=== PATIENT | female | born 1960 | race Caucasian/White ===

== ENCOUNTER 2021-06-10 07:44 | Emergency (ER) | payer MEDICARE, BC, SELFPAY ==
[2021-06-10 07:52] VITALS: BP 128/80; PULSE 98; RESP 17; TEMP 36.7; O2SAT 98; BMI 27.8
--- NOTE | 2021-06-10 08:08 | ED.GENADULT ---
HPI - General Adult General Chief complaint: Back Pain/Injury <ALICIA Cox Last Filed: 06/10/21 09:17> Stated complaint: back pain lifting <ALICIA Cox - Last Filed: 06/10/21 09:17> Time Seen by Provider: 06/10/21 08:08 <ALICIA Cox Last Filed: 06/10/21 09:17> Source: patient <ALICIA Cox Last Filed: 06/10/21 09:17> Mode of arrival: ambulatory <ALICIA Cox Last Filed: 06/10/21 09:17> Limitations: no limitations <ALICIA Cox Last Filed: 06/10/21 09:17> History of Present Illness HPI narrative: Patient is a 60 year old female presenting to the emergency department today with back pain. Patient states that she lifted a heavy object and is now having back pain. Patient states that she has a history of back pain similar to this. Patient denies any dizziness, lightheadedness, abdominal pain, nausea, vomiting, fever, chills, blurry vision, double vision, loss of vision, chest pain, difficulty breathing, shortness of breath, night sweats, pain with urination, increased urinary frequency, increased urinary urgency, blood in her urine or stool, syncope or a near syncopal episode, recent trauma or falls, bowel incontinence, bladder incontinence, bowel retention, bladder retention, or any other complaints at this time. <ALICIA Cox - Last Filed: 06/10/21 09:17> Onset (ago): hour(s) <ALICIA Cox Last Filed: 06/10/21 09:17> Location: back <ALICIA Cox Last Filed: 06/10/21 09:17> Radiation: non-radiation <ALICIA Cox Last Filed: 06/10/21 09:17> Severity: mild <ALICIA Cox Last Filed: 06/10/21 09:17> Severity scale (1-10): 3 <ALICIA Cox Last Filed: 06/10/21 09:17> Quality: dull <ALICIA Cox Last Filed: 06/10/21 09:17> Pain Consistency: constant <ALICIA Cox - Last Filed: 06/10/21 09:17> Relieving factors: none <ALICIA Cox - Last Filed: 06/10/21 09:17> Exacerbating factors: movement <ALICIA Cox - Last Filed: 06/10/21 09:17> Associated symptoms: denies other symptoms <ALICIA Cox - Last Filed: 06/10/21 09:17> Treatments prior to arrival: none <ALICIA Cox - Last Filed: 06/10/21 09:17> Related Data Home medications: Previous Rx's Medication Instructions Recorded cyclobenzaprine 10 mg tablet 10 mg PO TID PRN 7 Days #21 tab 06/10/21 <ALICIA Cox Last Filed: 06/10/21 09:17> Allergies/adverse reactions: Allergies Allergy/AdvReac Type Severity Reaction Status Date / Time No Known Allergies* Allergy Uncoded 11/11/19 14:48 <ALICIA Cox Last Filed: 06/10/21 09:17> Review of Systems Constitutional: Constitutional: Reports no additional constitutional complaints, Denies chills, Denies fever(s) and Denies night sweats <ALICIA Cox Last Filed: 06/10/21 09:17> Eyes: Eyes: Reports no additional eye complaints, Denies blurry vision, Denies change in vision, Denies diplopia, Denies eye discharge, Denies loss of vision and Denies eye pain <ALICIA Cox - Last Filed: 06/10/21 09:17> ENT: Denies dizziness <ALICIA Cox - Last Filed: 06/10/21 09:17> Cardiovascular: Cardiovascular: Reports no additional cardiovascular complaints, Denies chest pain, Denies lightheadedness, Denies Loss of Consciousness and Denies dyspnea <ALICIA Cox - Last Filed: 06/10/21 09:17> Respiratory: Respiratory: Reports no additional respiratory complaints and Denies dyspnea <ALICIA Cox - Last Filed: 06/10/21 09:17> Gastrointestinal: Gastrointestinal: Reports no additional gastrointestinal complaints, Denies abdominal pain, Denies melena, Denies hematochezia, Denies change in bowel habits and Denies change in stool character <ALICIA Cox - Last Filed: 06/10/21 09:17> Genitourinary: Genitourinary: Denies hematuria, Denies urinary frequency, Denies dysuria, Denies urinary incontinence, Denies urinary hesitancy and Denies urinary urgency <ALICIA Cox - Last Filed: 06/10/21 09:17> Musculoskeletal: Musculoskeletal: Reports no additional musculoskeletal complaints, Reports back pain, Denies numbness and Denies tingling <ALICIA Cox - Last Filed: 06/10/21 09:17> Neurologic: Denies dizziness, Denies loss of vision, Denies numbness and Denies tingling <ALICIA Cox - Last Filed: 06/10/21 09:17> Psychiatric: Psychiatric: Reports no additional psychiatric complaints <ALICIA Cox - Last Filed: 06/10/21 09:17> Endocrine: Endocrine: Reports no additional endocrine complaints <ALICIA Cox - Last Filed: 06/10/21 09:17> Hematologic/Lymphatic: Hematologic/Lymphatic: Reports no additional hematologic/lymphatic complaints <ALICIA Cox - Last Filed: 06/10/21 09:17> Allergic/Immunologic: Allergic/Immunologic: Reports no additional allergic/immunologic complaints <ALICIA Cox - Last Filed: 06/10/21 09:17> PMFSH Past Medical History Attestation statement: The following information was validated with the patient. <ALICIA Cox - Last Filed: 06/10/21 09:17> Source: old records reviewed <ALICIA Cox - Last Filed: 06/10/21 09:17> Medical History: Medical History Diabetic acetonemia HTN (hypertension) <ALICIA Cox - Last Filed: 06/10/21 09:17> Surgical History: Surgical History Hx of parathyroidectomy <ALICIA Cox Last Filed: 06/10/21 09:17> Social History Social History: Social History Advance Directives: No Advance Directives Information Provided: No <ALICIA Cox - Last Filed: 06/10/21 09:17> Physical Exam ED Vital Signs: Vital Signs - 24 hr 06/10/21 07:52 06/10/21 08:46 Temperature 98.1 F 97.9 F Pulse Rate 98 97 Respiratory Rate 17 20 Blood Pressure 128/80 140/89 H Pulse Oximetry 98 99 BMI result Body Mass Index 27.8 <ALICIA Cox - Last Filed: 06/10/21 09:17> Const General: cooperative, no acute distress, alert and awake <ALICIA Cox - Last Filed: 06/10/21 09:17> Nutritional Appearance: well nourished <ALICIA Cox Last Filed: 06/10/21 09:17> Orientation/consciousness: patient oriented x3 <ALICIA Cox - Last Filed: 06/10/21 09:17> Limitations: no limitations <ALICIA Cox - Last Filed: 06/10/21 09:17> HENMT Head: Yes normal to inspection and Yes atraumatic <ALICIA Cox - Last Filed: 06/10/21 09:17> Ears: hearing grossly normal bilaterally and external ears normal <ALICIA Cox Last Filed: 06/10/21 09:17> General nose exam: Normal external nose present, no nasal discharge noted and no epistaxis <ALICIA Cox Last Filed: 06/10/21 09:17> Face and sinus: Yes normal facial exam, No abrasion and No laceration <ALICIA Cox - Last Filed: 06/10/21 09:17> Mouth: Normal oral and palatal mucosa present, no drooling and no muffled voice <ALICIA Cox Last Filed: 06/10/21 09:17> Eyes General: appearance normal, both eyes and all related structures <ALICIA Cox - Last Filed: 06/10/21 09:17> Periorbital: periorbital findings normal <ALICIA Cox Last Filed: 06/10/21 09:17> Eyelids: Yes eyelids normal <ALICIA Cox Last Filed: 06/10/21 09:17> Conjunctivae: conjunctivae normal <Tracie Avila HI - Last Filed: 06/10/21 09:17> Pupils: Equal, round and reactive pupils present <Tracie Avila HI - Last Filed: 06/10/21 09:17> EOM: EOMs intact bilaterally <Tracie Avila HI - Last Filed: 06/10/21 09:17> Neck Neck: Yes normal visual inspection, Yes full ROM and Yes no lymphadenopathy <Tracie Avila HI - Last Filed: 06/10/21 09:17> Chest Chest palpation & inspection: normal inspection of the chest <Tracie Delacruzmariaa HI - Last Filed: 06/10/21 09:17> Resp Effort & Inspection: normal respiratory effort and able to speak in complete sentences <Tracie Avila HI - Last Filed: 06/10/21 09:17> Auscultation: clear to auscultation bilaterally <Tracie Delacruzmariaa HI - Last Filed: 06/10/21 09:17> Cardio Rate: regular rate <Tracie Avila HI - Last Filed: 06/10/21 09:17> Rhythm: regular rhythm <Tracie Delacruzmariaa HI - Last Filed: 06/10/21 09:17> GI Inspection: Yes normal to inspection <Tracie Avila HI - Last Filed: 06/10/21 09:17> General: Yes no CVA tenderness <Tracie Delacruzmariaa HI - Last Filed: 06/10/21 09:17> Back/Spine/Pelvis Back: no CVA tenderness <Tracie Delacruzmariaa HI - Last Filed: 06/10/21 09:17> Cervical Spine: normal cervical lordosis and cervical ROM normal <Tracie Delacruzmariaa HI - Last Filed: 06/10/21 09:17> Thoracic/Lumbar Spine: thoracic and lumbar spine normal to inspection and thoraco-lumbar ROM normal <Tracie Delacruzmariaa HI - Last Filed: 06/10/21 09:17> Pelvis: no pain with anterior-posterior compression <Traciesharath Delacruzmariaa HI - Last Filed: 06/10/21 09:17> Neuro General: patient oriented x3 and moves all extremities <Tracie ALICIA Avila - Last Filed: 06/10/21 09:17> Cranial nerves: Yes Equal, round and reactive pupils present <Tracie Avila HI - Last Filed: 06/10/21 09:17> Cognition (Neuro): normal cognition <Tracie AvilaALICIA - Last Filed: 06/10/21 09:17> Motor exam (neuro): 5/5 motor strength present throughout <Tracie AvilaALICIA - Last Filed: 06/10/21 09:17> Sensory Exam: Normal double simultaneous stimulation for sensation <Tracie Avila HI - Last Filed: 06/10/21 09:17> Coordination: [id number] test normal <Tracie Avila HI - Last Filed: 06/10/21 09:17> Extrem General: Yes normal to inspection, Yes full ROM and Yes capillary refill normal <Tracie AvilaALICIA - Last Filed: 06/10/21 09:17> Psych Appearance: grossly normal <Tracie AvilaALICIA - Last Filed: 06/10/21 09:17> Mental Status: mental status grossly normal <Tracie Avila HI - Last Filed: 06/10/21 09:17> Affect: normal affect <Tracie Avila HI - Last Filed: 06/10/21 09:17> Attitude: cooperative <Tracie AvilaALICIA - Last Filed: 06/10/21 09:17> Thought process: Normal thought process present <Tracie AvilaALICIA - Last Filed: 06/10/21 09:17> Thought content: Normal thought content present <Tracie DelacruzALICIA leroy - Last Filed: 06/10/21 09:17> Insight: Good insight present (Psych) <Tracie AvilaALICIA - Last Filed: 06/10/21 09:17> Medical Decision Making MDM Narrative Medical decision making narrative: Patient is a 60 year old female presenting to the emergency department today with low back pain. Patient's physical exam was unremarkable. I explained my physical exam findings to the patient. I answered all questions asked by the patient. Patient received IM Toradol and PO Flexeril which she stated helped her symptoms significantly. I stressed the importance of the patient taking her medication as prescribed. I stressed the importance of the patient following up with her primary care provider. I stressed the importance of the patient returning to the emergency department immediately if her symptoms were to worsen or if she were to develop any dizziness, shortness of breath, difficulty breathing, chest pain, blurry vision, loss of vision, nausea, vomiting, abdominal pain, fever, chills, back pain, or any other complaints. Patient verbalized agreement and understanding with this treatment plan and discharge. <ALICIA Cox - Last Filed: 06/10/21 09:17> Differential Diagnosis Differential Diagnosis: low back pain <ALICIA Cox Last Filed: 06/10/21 09:17> Medical Records Medical records reviewed: Yes I reviewed the patient's medical records. <ALICIA Cox Last Filed: 06/10/21 09:17> Discharge Plan Discharge Clinical Impression: Strain of lumbar region <ALICIA Cox Last Filed: 06/10/21 09:17> Patient Disposition: Home, Self-Care <ALICIA Cox Last Filed: 06/10/21 09:17> Instructions: Acute Low Back Pain (ED) <ALICIA Cox Last Filed: 06/10/21 09:17> Additional Instructions: Follow up with your primary care provider. Return to the emergency department immediately if your symptoms worsen or if you develop any dizziness, shortness of breath, difficulty breathing, chest pain, blurry vision, loss of vision, nausea, vomiting, abdominal pain, fever, chills, back pain, or any other complaints. <ALICIA Cox - Last Filed: 06/10/21 09:17> Prescriptions: New cyclobenzaprine 10 mg tablet 10 mg PO TID PRN (Reason: muscle spasm) 7 Days Qty: 21 0RF <ALICIA Cox - Last Filed: 06/10/21 09:17> Referrals: [facility] [Provider Group] Lele Ocampo MD [Primary Care Provider] - (Follow up with your PCP. ) <ALICIA Cox - Last Filed: 06/10/21 09:17> Interventions: ED Discharge Assessment Last Done: 06/10/21 08:58 <ALICIA Cox Last Filed: 06/10/21 09:17> Discharge Date/Time: 06/10/21 08:59 <ALICIA Cox - Last Filed: 06/10/21 09:17> Print Language: Yakut <ALICIA Cox - Last Filed: 06/10/21 09:17>
[2021-06-10] MEDS: Cyclobenzaprine HCl 10 MG TABLET PO (08:28)
[2021-06-10] MEDS: Ketorolac Tromethamine 15 MG/ML VIAL IM (08:28)
[2021-06-10 08:46] VITALS: BP 140/89; PULSE 97; RESP 20; TEMP 36.6; O2SAT 99
== END 2021-06-10 08:59 | disposition home or self-care (01) ==
PROVIDERS: Emergency Provider Emergency Medicine; PCP Pediatrics
DX: S39.012A Strain of muscle, fascia and tendon of lower back, initial encounter (principal); X50.0XXA Overexertion from strenuous movement or load, initial encounter; X50.3XXA Overexertion from repetitive movements, initial encounter; Y93.9 Activity, unspecified; Y92.9 Unspecified place or not applicable; Y99.9 Unspecified external cause status
CPT/HCPCS: 96372; 99283; 99284; J1885

== ENCOUNTER 2023-05-17 22:58 | Emergency (ER) | payer MEDICARE, BC, SELFPAY ==
--- NOTE | 2023-05-17 | ECG_ITS ---
Test Reason : CHEST PRESSURE Blood Pressure : / mmHG Vent. Rate : 108 BPM Atrial Rate : 108 BPM P-R Int : 126 ms QRS Dur : 080 ms QT Int : 364 ms P-R-T Axes : 049 -03 045 degrees QTc Int : 487 ms Sinus tachycardia Minimal voltage criteria for LVH, may be normal variant ( R in aVL ) Nonspecific ST and T wave abnormality Abnormal ECG When compared to the previous EKG of ST changes are more prominent Referred By: Generic ED Physician Electronically Signed By:ALMA DEL CID MD
[2023-05-17 23:04] VITALS: BP 168/94; PULSE 122; RESP 18; TEMP 37.6; O2SAT 96; BMI 27.4
[2023-05-17 23:16] LABS: MANUAL DIFF FLAG NO
[2023-05-17 23:17] LABS: Basophils Absolute Auto 0.1 X10*3/uL (0.0-0.2); Basophils Percent Auto 0.8 % (0-2); Eosinophils Absolute Auto 0.2 X10*3/uL (0.0-0.4); Eosinophils Percent Auto 2.2 % (0-4); Hematocrit 41.9 % (37.0-47.0); Hemoglobin 14.2 g/dl (12.0-16.0); Imm Gran Abs Auto 0.02 X10*3/uL (0.00-0.03); Imm Gran Pct Auto 0.2 % (0.0-0.4); Lymphocytes Absolute Auto 1.4 X10*3/uL (1.2-4.9); Lymphocytes Percent Auto 15.8 % (20-40); Mean Corpuscular HGB Conc 33.9 g/dl (31.0-35.0); Mean Corpuscular Hemoglobin 28.2 pg (27.0-33.0); Mean Corpuscular Volume 83.3 fL (80.0-98.0); Mean Platelet Volume 9.3 fL (9.4-12.3); Monocytes Absolute Auto 0.8 X10*3/uL (0.1-1.2); Monocytes Percent Auto 8.8 % (2-11); Neutrophils Absolute Auto 6.5 x10*3/uL (2.0-8.3); Neutrophils Percent Auto 72.2 % (45-73); Platelet Count 297 X10*3/uL (160-400); Red Blood Count 5.03 X10*6/uL (4.20-5.50); Red Cell Distribution Width 13.7 % (11.0-16.0); White Blood Count 8.9 X10*3/uL (4.8-10.8)
[2023-05-17 23:33] LABS: Alanine Aminotransferase 33 U/L (0-31); Albumin Level 4.1 g/dL (3.5-5.0); Alkaline Phosphatase 81 U/L (39-117); Anion Gap 15 (12-20); Aspartate Amino Transferase 23 U/L (5-31); Bilirubin Total 0.6 mg/dL (0.0-1.0); Blood Urea Nitrogen 12 mg/dL (9-16); Calcium 9.4 mg/dL (8.4-10.2); Carbon Dioxide 22 mmol/L (22-29); Chloride 106 mmol/L (96-108); Creatinine Clr Calc Pharmacy 64.3; Estimated Glomerular Filt Rate > 60; Glucose Random 140 mg/dL (60-115); Potassium 3.6 mmol/L (3.3-5.1); Sodium 139 mmol/L (135-145); Total Protein 8.2 g/dL (6.5-8.0)
[2023-05-17 23:40] LABS: Troponin-I High Sensitivity < 2.7 ng/L (<3.5-17.0)
== END 2023-05-18 02:06 | disposition left against medical advice (07) ==
PROVIDERS: Emergency Provider Emergency Medicine; PCP Pediatrics
DX: R51.9 Headache, unspecified (principal); R11.10 Vomiting, unspecified
CPT/HCPCS: 36415; 80053; 84484; 85025; 93005; 99283

== ENCOUNTER → 2023-05-17 23:12 | Outpatient (BNV) | payer MEDICARE, BC, SELFPAY | PROVIDERS: Emergency Provider Emergency Medicine; PCP Pediatrics; Visit Provider Internal Medicine Cardiovascular Disease | DX: R94.31 Abnormal electrocardiogram [ECG] [EKG] (principal) | CPT/HCPCS: 93010 ==